=== PATIENT | male | born 1975 | race Caucasian/White ===

== ENCOUNTER 2023-07-27 13:24 | Emergency (ER) | payer OTHER ==
[~2023-07-27] VITALS: Ht 185.4 cm; Wt 94.1 kg
[2023-07-27] MEDS ORDERED: NAPR-56 PO (16:24)
[2023-07-27] MEDS ORDERED: CYCL-1 PO (16:24)
[2023-07-27 16:33] VITALS: BP 121/71; PULSE 63; RESP 17; TEMP 97.8; O2SAT 98
== END 2023-07-27 16:39 | disposition home or self-care (01) ==
LOC: ER 13:25
DX: S16.1XXA Strain of muscle, fascia and tendon at neck level, initial encounter (principal); S39.012A Strain of muscle, fascia and tendon of lower back, initial encounter; M25.552 Pain in left hip; Z88.0 Allergy status to penicillin; V29.098A Other motorcycle driver injured in collision with other motor vehicles in nontraffic accident, initial encounter; Y93.89 Activity, other specified; Y92.89 Other specified places as the place of occurrence of the external cause; Y99.8 Other external cause status
CPT/HCPCS: 72040; 72100; 99284